=== PATIENT | male | born 1955 | race Caucasian/White ===

== ENCOUNTER 2017-08-16 06:02 | Inpatient (IN) | payer OTHER ==
[2017-08-16] MEDS: CEFAZOLIN 2 GM/50 ML (PMX) 50 ML IVPB (05:30)
[2017-08-16] MEDS ORDERED: ROCURONIUM 50 MG INJ ×2 (07:00→07:34)
[2017-08-16] MEDS ORDERED: MIDAZOLAM 1 MG/ML 2 ML INJ ×2 (07:34)
[2017-08-16] MEDS ORDERED: PROPOFOL 20 ML (07:34)
[2017-08-16] MEDS ORDERED: CEFAZOLIN 1 GM INJ (07:34)
[2017-08-16] MEDS ORDERED: ROPIVACAINE 0.5 % 30 ML VIAL (07:34)
[2017-08-16] MEDS ORDERED: PHENYLephrine (100 MCG/ML) 5ML SYG (07:55)
[2017-08-16] MEDS ORDERED: OXYCODONE/ACETAMINOPHEN (5/325) TAB PO ×2 (10:00)
[2017-08-16] MEDS ORDERED: DIPHENHYDRAMINE 50 MG INJ IV (10:00)
[2017-08-16] MEDS ORDERED: HYDROmorphONE (0.2 MG/ML) 10ML SYG IV ×2 (10:00)
[2017-08-16] MEDS ORDERED: EPHEDrine SULFATE 50 MG/5 ML SYG IV (10:00)
[2017-08-16] MEDS ORDERED: METOCLOPRAMIDE 10 MG INJ IV (10:00)
[2017-08-16] MEDS ORDERED: FENTAnyl 50 MCG/ML VIAL IV ×3 (10:00)
[2017-08-16] MEDS ORDERED: ONDANSETRON 4 MG INJ IV ×2 (10:00→17:00)
[2017-08-16] MEDS ORDERED: hydrALAzine 20 MG INJ IV (10:00)
[2017-08-16] MEDS ORDERED: MEPERIDINE 25 MG INJ IV (10:00)
[2017-08-16] MEDS ORDERED: LABETALOL HCL 20MG INJ IV (10:00)
[2017-08-16] MEDS ORDERED: METOCLOPRAMIDE 10 MG INJ (10:12)
[2017-08-16] MEDS ORDERED: ONDANSETRON 4 MG INJ (10:12)
[2017-08-16] MEDS ORDERED: DEXAMETHASONE 4 MG/ML 1 ML INJ (10:13)
[2017-08-16] MEDS ORDERED: SUGAMMADEX SODIUM 200 MG/2 ML VIAL IV (10:13)
[2017-08-16] MEDS ORDERED: KETOROLAC 30 MG INJ (10:13)
[2017-08-16] MEDS: POLYMYXIN/BACITRACIN 1L IRRIG (11:08)
[2017-08-16] MEDS: HYDROmorphONE (0.2 MG/ML) 10ML SYG IV (15:14)
[2017-08-16] MEDS: OXYCODONE/ACETAMINOPHEN (5/325) TAB PO ×2 (15:51→20:13)
[2017-08-16] MEDS: morphine 2 MG INJ IV ×2 (18:04→22:32)
[2017-08-16] MEDS: IBUPROFEN 600 MG TAB PO (19:04)
[2017-08-16] MEDS: FAMOTIDINE 20 MG TAB PO (20:13)
[2017-08-17] MEDS: OXYCODONE/ACETAMINOPHEN (5/325) TAB PO ×6 (00:20→22:58)
[2017-08-17] MEDS: morphine 2 MG INJ IV ×3 (02:37→15:18)
[2017-08-17 05:48] LABS: ADD MAN DIFF? NO
[2017-08-17 05:56] LABS: BASOPHILS % 0.1 % (0.0-2.0); EOSINOPHILS % 0.1 % (0.0-7.0); HEMATOCRIT 37.9 % (42.0-52.0); HEMOGLOBIN 12.7 g/dl (14.0-18.0); LYMPHOCYTES # 1.9 10^3/ul (0.8-2.9); LYMPHOCYTES % 12.7 % (15.0-51.0); MEAN CORPUSCULAR HEMOGLOBIN 29.4 pg (29.0-33.0); MEAN CORPUSCULAR HGB CONC 33.5 g/dl (32.0-37.0); MEAN CORPUSCULAR VOLUME 87.7 fl (82.0-101.0); MEAN PLATELET VOLUME 10.1 fl (7.4-10.4); MONOCYTE # 1.5 10^3/ul (0.3-0.9); MONOCYTES % 9.8 % (0.0-11.0); NEUTROPHIL # 11.7 10^3/ul (1.6-7.5); PLATELET COUNT 306 10^3/UL (140-415); RED BLOOD COUNT 4.32 10^6/ul (4.70-6.10); RED CELL DISTRIBUTION WIDTH 12.6 % (11.5-14.5)
[2017-08-17 05:56] LABS: WHITE BLOOD COUNT 15.2 10^3/ul (4.8-10.8)
[2017-08-17 06:23] LABS: ANION GAP 15 (8-16); BLOOD UREA NITROGEN 11 mg/dl (7-20); CALCIUM 9.2 mg/dl (8.4-10.2); CARBON DIOXIDE 23 mmol/L (21-31); CHLORIDE 107 mmol/L (97-110); CREATININE 0.67 mg/dl (0.61-1.24); GLUCOSE 132 mg/dl (70-220); POTASSIUM 3.8 mmol/L (3.5-5.1); SODIUM 141 mmol/L (135-144)
[2017-08-17] MEDS: FAMOTIDINE 20 MG TAB PO ×2 (08:28→20:35)
[2017-08-17] MEDS: ENOXAPARIN 30 MG/0.3 ML SYG SC (08:29)
[2017-08-17] MEDS ORDERED: HYDROCODONE/APAP (5/325) TAB PO (10:00)
[2017-08-17] MEDS: morphine LIQ (10 MG/5 ML) CUP PO (20:36)
[2017-08-18] MEDS: morphine LIQ (10 MG/5 ML) CUP PO ×2 (01:56→06:52)
[2017-08-18] MEDS: OXYCODONE/ACETAMINOPHEN (5/325) TAB PO ×4 (04:33→20:03)
[2017-08-18] MEDS: ENOXAPARIN 30 MG/0.3 ML SYG SC (08:35)
[2017-08-18] MEDS: FAMOTIDINE 20 MG TAB PO ×2 (08:35→20:03)
[2017-08-18 12:41] LABS: ALANINE AMINOTRANSFERASE 35 IU/L (13-69); ALBUMIN/GLOBULIN RATIO 1.37; ALKALINE PHOSPHATASE 70 IU/L (42-121); ANION GAP 12 (8-16); ASPARTATE AMINO TRANSFERASE 18 IU/L (15-46); BILIRUBIN,INDIRECT 0.1 mg/dl (0-1.1); BILIRUBIN,TOTAL 0.1 mg/dl (0.2-1.3); BLOOD UREA NITROGEN 11 mg/dl (7-20); CALCIUM 9.2 mg/dl (8.4-10.2); CARBON DIOXIDE 30 mmol/L (21-31); CHLORIDE 104 mmol/L (97-110); CREATININE 0.76 mg/dl (0.61-1.24); GLUCOSE 91 mg/dl (70-220); POTASSIUM 3.9 mmol/L (3.5-5.1); SODIUM 142 mmol/L (135-144); TOTAL PROTEIN 6.9 g/dl (6.1-8.1)
[2017-08-19] MEDS: OXYCODONE/ACETAMINOPHEN (5/325) TAB PO ×5 (02:25→22:02)
[2017-08-19 05:03] LABS: ADD MAN DIFF? NO
[2017-08-19 05:08] LABS: WHITE BLOOD COUNT 8.3 10^3/ul (4.8-10.8)
[2017-08-19 05:08] LABS: BASOPHILS % 0.5 % (0.0-2.0); EOSINOPHILS # 0.2 10^3/ul (0.0-0.5); EOSINOPHILS % 1.8 % (0.0-7.0); HEMATOCRIT 40.4 % (42.0-52.0); HEMOGLOBIN 13.3 g/dl (14.0-18.0); LYMPHOCYTES # 2.1 10^3/ul (0.8-2.9); LYMPHOCYTES % 25.6 % (15.0-51.0); MEAN CORPUSCULAR HEMOGLOBIN 29.2 pg (29.0-33.0); MEAN CORPUSCULAR HGB CONC 32.9 g/dl (32.0-37.0); MEAN CORPUSCULAR VOLUME 88.8 fl (82.0-101.0); MEAN PLATELET VOLUME 9.9 fl (7.4-10.4); MONOCYTE # 1.2 10^3/ul (0.3-0.9); MONOCYTES % 14.8 % (0.0-11.0); NEUTROPHIL # 4.7 10^3/ul (1.6-7.5); NEUTROPHILS % 56.5 % (39.0-77.0); PLATELET COUNT 310 10^3/UL (140-415); POSITIVE DIFF @See below; RED BLOOD COUNT 4.55 10^6/ul (4.70-6.10); RED CELL DISTRIBUTION WIDTH 13.3 % (11.5-14.5)
[2017-08-19 05:48] LABS: ANION GAP 15 (8-16); BLOOD UREA NITROGEN 10 mg/dl (7-20); CALCIUM 9.7 mg/dl (8.4-10.2); CARBON DIOXIDE 28 mmol/L (21-31); CHLORIDE 106 mmol/L (97-110); CREATININE 0.75 mg/dl (0.61-1.24); GLUCOSE 103 mg/dl (70-220); POTASSIUM 4.5 mmol/L (3.5-5.1); SODIUM 144 mmol/L (135-144)
[2017-08-19] MEDS: FAMOTIDINE 20 MG TAB PO ×2 (09:05→21:07)
[2017-08-19] MEDS: ENOXAPARIN 30 MG/0.3 ML SYG SC (09:07)
[2017-08-20] MEDS: OXYCODONE/ACETAMINOPHEN (5/325) TAB PO ×3 (04:58→17:04)
[2017-08-20 05:12] LABS: ADD MAN DIFF? NO
[2017-08-20 05:23] LABS: BASOPHILS % 0.6 % (0.0-2.0); EOSINOPHILS # 0.2 10^3/ul (0.0-0.5); EOSINOPHILS % 2.6 % (0.0-7.0); HEMATOCRIT 41.3 % (42.0-52.0); HEMOGLOBIN 13.6 g/dl (14.0-18.0); LYMPHOCYTES # 2.1 10^3/ul (0.8-2.9); LYMPHOCYTES % 34.1 % (15.0-51.0); MEAN CORPUSCULAR HEMOGLOBIN 29.1 pg (29.0-33.0); MEAN CORPUSCULAR HGB CONC 32.9 g/dl (32.0-37.0); MEAN CORPUSCULAR VOLUME 88.2 fl (82.0-101.0); MEAN PLATELET VOLUME 9.9 fl (7.4-10.4); MONOCYTE # 0.8 10^3/ul (0.3-0.9); MONOCYTES % 13.3 % (0.0-11.0); NEUTROPHILS % 48.8 % (39.0-77.0); PLATELET COUNT 342 10^3/UL (140-415); RED BLOOD COUNT 4.68 10^6/ul (4.70-6.10); RED CELL DISTRIBUTION WIDTH 13.1 % (11.5-14.5)
[2017-08-20 05:23] LABS: WHITE BLOOD COUNT 6.2 10^3/ul (4.8-10.8)
[2017-08-20 06:01] LABS: BLOOD UREA NITROGEN 14 mg/dl (7-20)
[2017-08-20 07:22] LABS: ANION GAP 15 (8-16); CALCIUM 9.8 mg/dl (8.4-10.2); CARBON DIOXIDE 27 mmol/L (21-31); CHLORIDE 106 mmol/L (97-110); CREATININE 0.73 mg/dl (0.61-1.24); GLUCOSE 105 mg/dl (70-220); SODIUM 144 mmol/L (135-144)
[2017-08-20] MEDS: FAMOTIDINE 20 MG TAB PO ×2 (08:48→22:57)
[2017-08-20] MEDS: ENOXAPARIN 30 MG/0.3 ML SYG SC (10:38)
[2017-08-20] MEDS: IOHEXOL 100 ML (12:32)
[2017-08-20] MEDS: SOD CHLORIDE 0.9% 100 ML (12:32)
[2017-08-21] MEDS: OXYCODONE/ACETAMINOPHEN (5/325) TAB PO ×4 (05:03→22:28)
[2017-08-21] MEDS: IBUPROFEN 600 MG TAB PO (07:46)
[2017-08-21] MEDS: FAMOTIDINE 20 MG TAB PO ×2 (08:25→20:40)
[2017-08-21] MEDS: ENOXAPARIN 30 MG/0.3 ML SYG SC (08:27)
[2017-08-21] MEDS ORDERED: POLYETHYLENE GLYCOL 17 GM PACKET PO (15:30)
[2017-08-21] MEDS: DOCUSATE SODIUM 100 MG CAP PO ×2 (15:47→20:40)
[2017-08-22] MEDS: OXYCODONE/ACETAMINOPHEN (5/325) TAB PO ×5 (03:48→21:59)
[2017-08-22 06:12] LABS: ANION GAP 16 (8-16); BLOOD UREA NITROGEN 23 mg/dl (7-20); CALCIUM 9.5 mg/dl (8.4-10.2); CARBON DIOXIDE 26 mmol/L (21-31); CHLORIDE 105 mmol/L (97-110); CREATININE 0.67 mg/dl (0.61-1.24); GLUCOSE 97 mg/dl (70-220); POTASSIUM 4.3 mmol/L (3.5-5.1); SODIUM 143 mmol/L (135-144)
[2017-08-22] MEDS: DOCUSATE SODIUM 100 MG CAP PO ×2 (08:51→20:14)
[2017-08-22] MEDS: FAMOTIDINE 20 MG TAB PO ×2 (08:51→20:14)
[2017-08-22] MEDS: ENOXAPARIN 30 MG/0.3 ML SYG SC (08:53)
[2017-08-22] MEDS: IBUPROFEN 600 MG TAB PO (20:17)
== END 2017-08-22 22:20 | DRG 469 ==
LOC: REC 06:02 → MS1 14:59
PROC: 0SRF0JZ Replacement of Right Ankle Joint with Synthetic Substitute, Open Approach (ICD-10-PCS; principal; 2017-08-16 07:29)
DX: M19.071 Primary osteoarthritis, right ankle and foot (principal); G89.18 Other acute postprocedural pain; G89.29 Other chronic pain; M54.2 Cervicalgia; H91.90 Unspecified hearing loss, unspecified ear; Z96.651 Presence of right artificial knee joint
CPT/HCPCS: 73610-RT; 80048; 80053; 85025; 97110; 97116; 97163; 97530

== ENCOUNTER 2017-08-22 17:47 | Inpatient (IN) | payer OTHER ==
[2017-08-22] MEDS ORDERED: morphine LIQ (10 MG/5 ML) CUP PO (23:00)
[2017-08-22] MEDS ORDERED: ONDANSETRON 4 MG INJ IV (23:30)
[2017-08-22] MEDS ORDERED: POLYETHYLENE GLYCOL 17 GM PACKET PO (23:30)
[2017-08-23] MEDS ORDERED: PENDING SANTYL ORDER FOR WOUND CARE XX (00:30)
[2017-08-23] MEDS: OXYCODONE/ACETAMINOPHEN (5/325) TAB PO ×4 (05:34→21:03)
[2017-08-23 07:02] LABS: ADD UMIC NO; UR ASCORBIC ACID NEGATIVE (NEGATIVE); UR BILIRUBIN (Dip) NEGATIVE (NEGATIVE); UR BLOOD (Dip) NEGATIVE (NEGATIVE); UR CLARITY CLEAR (CLEAR); UR COLOR YELLOW (YELLOW); UR GLUCOSE (Dip) NEGATIVE (NEGATIVE); UR KETONES (Dip) NEGATIVE (NEGATIVE); UR LEUKOCYTE ESTERASE (Dip) NEGATIVE Leu/ul (NEGATIVE); UR NITRITE (Dip) NEGATIVE (NEGATIVE); UR SPECIFIC GRAVITY (Dip) 1.021 (1.003-1.030); UR TOTAL PROTEIN (Dip) NEGATIVE (NEGATIVE); UR UROBILINOGEN (Dip) NEGATIVE (NEGATIVE)
[2017-08-23 08:38] LABS: ADD MAN DIFF? NO
[2017-08-23 08:55] LABS: WHITE BLOOD COUNT 5.8 10^3/ul (4.8-10.8)
[2017-08-23 08:55] LABS: BASOPHILS % 0.5 % (0.0-2.0); EOSINOPHILS # 0.1 10^3/ul (0.0-0.5); EOSINOPHILS % 2.1 % (0.0-7.0); HEMATOCRIT 42.9 % (42.0-52.0); HEMOGLOBIN 13.9 g/dl (14.0-18.0); LYMPHOCYTES # 1.9 10^3/ul (0.8-2.9); LYMPHOCYTES % 32.3 % (15.0-51.0); MEAN CORPUSCULAR HEMOGLOBIN 28.8 pg (29.0-33.0); MEAN CORPUSCULAR HGB CONC 32.4 g/dl (32.0-37.0); MEAN PLATELET VOLUME 9.9 fl (7.4-10.4); MONOCYTE # 0.7 10^3/ul (0.3-0.9); MONOCYTES % 12.7 % (0.0-11.0); NEUTROPHIL # 2.9 10^3/ul (1.6-7.5); PLATELET COUNT 357 10^3/UL (140-415); RED BLOOD COUNT 4.82 10^6/ul (4.70-6.10); RED CELL DISTRIBUTION WIDTH 13.1 % (11.5-14.5)
[2017-08-23 09:22] LABS: ALANINE AMINOTRANSFERASE 84 IU/L (13-69); ALBUMIN 4.3 g/dl (3.3-4.9); ALBUMIN/GLOBULIN RATIO 1.48; ALKALINE PHOSPHATASE 70 IU/L (42-121); ANION GAP 14 (8-16); ASPARTATE AMINO TRANSFERASE 47 IU/L (15-46); BILIRUBIN,INDIRECT 0.2 mg/dl (0-1.1); BILIRUBIN,TOTAL 0.2 mg/dl (0.2-1.3); BLOOD UREA NITROGEN 20 mg/dl (7-20); CARBON DIOXIDE 29 mmol/L (21-31); CHLORIDE 103 mmol/L (97-110); CREATININE 0.75 mg/dl (0.61-1.24); GLUCOSE 105 mg/dl (70-220); POTASSIUM 4.2 mmol/L (3.5-5.1); SODIUM 142 mmol/L (135-144); TOTAL PROTEIN 7.2 g/dl (6.1-8.1)
[2017-08-23] MEDS: DOCUSATE SODIUM 100 MG CAP PO ×2 (09:48→21:03)
[2017-08-23] MEDS: FAMOTIDINE 20 MG TAB PO ×2 (09:49→21:03)
[2017-08-23] MEDS: ENOXAPARIN 30 MG/0.3 ML SYG SC (09:50)
[2017-08-24] MEDS: IBUPROFEN 600 MG TAB PO ×2 (05:23→21:10)
[2017-08-24] MEDS: OXYCODONE/ACETAMINOPHEN (5/325) TAB PO ×4 (06:31→18:45)
[2017-08-24] MEDS: DOCUSATE SODIUM 100 MG CAP PO ×2 (08:27→21:08)
[2017-08-24] MEDS: FAMOTIDINE 20 MG TAB PO ×2 (08:27→21:08)
[2017-08-24] MEDS: ENOXAPARIN 30 MG/0.3 ML SYG SC (08:28)
[2017-08-25] MEDS: OXYCODONE/ACETAMINOPHEN (5/325) TAB PO ×3 (06:54→17:04)
[2017-08-25] MEDS: DOCUSATE SODIUM 100 MG CAP PO ×2 (09:35→21:00)
[2017-08-25] MEDS: FAMOTIDINE 20 MG TAB PO ×2 (09:35→21:00)
[2017-08-25] MEDS: ENOXAPARIN 30 MG/0.3 ML SYG SC (09:36)
[2017-08-25] MEDS: IBUPROFEN 600 MG TAB PO (21:00)
[2017-08-26] MEDS: IBUPROFEN 600 MG TAB PO (06:45)
[2017-08-26] MEDS: OXYCODONE/ACETAMINOPHEN (5/325) TAB PO ×3 (06:49→18:00)
[2017-08-26] MEDS: DOCUSATE SODIUM 100 MG CAP PO ×2 (09:19→21:00)
[2017-08-26] MEDS: FAMOTIDINE 20 MG TAB PO ×2 (09:19→21:00)
[2017-08-26] MEDS: ENOXAPARIN 30 MG/0.3 ML SYG SC (09:20)
[2017-08-27] MEDS: OXYCODONE/ACETAMINOPHEN (5/325) TAB PO ×4 (01:43→20:25)
[2017-08-27] MEDS: DOCUSATE SODIUM 100 MG CAP PO ×2 (09:00→20:25)
[2017-08-27] MEDS: FAMOTIDINE 20 MG TAB PO ×2 (09:00→20:25)
[2017-08-27] MEDS: ENOXAPARIN 30 MG/0.3 ML SYG SC (09:08)
[2017-08-28] MEDS: OXYCODONE/ACETAMINOPHEN (5/325) TAB PO ×4 (04:23→20:32)
[2017-08-28] MEDS: FAMOTIDINE 20 MG TAB PO ×2 (10:26→20:31)
[2017-08-28] MEDS: DOCUSATE SODIUM 100 MG CAP PO ×2 (10:26→20:31)
[2017-08-28] MEDS: ENOXAPARIN 30 MG/0.3 ML SYG SC (10:27)
[2017-08-29] MEDS: OXYCODONE/ACETAMINOPHEN (5/325) TAB PO ×3 (06:19→19:41)
[2017-08-29] MEDS: DOCUSATE SODIUM 100 MG CAP PO ×2 (09:45→21:00)
[2017-08-29] MEDS: FAMOTIDINE 20 MG TAB PO ×2 (09:45→21:00)
[2017-08-29] MEDS: ENOXAPARIN 30 MG/0.3 ML SYG SC (09:46)
[2017-08-30] MEDS: OXYCODONE/ACETAMINOPHEN (5/325) TAB PO ×3 (04:34→17:44)
[2017-08-30] MEDS: FAMOTIDINE 20 MG TAB PO ×2 (08:35→20:06)
[2017-08-30] MEDS: DOCUSATE SODIUM 100 MG CAP PO ×2 (08:35→20:06)
[2017-08-30] MEDS: ENOXAPARIN 30 MG/0.3 ML SYG SC (08:36)
[2017-08-31] MEDS: OXYCODONE/ACETAMINOPHEN (5/325) TAB PO ×2 (01:09→07:34)
[2017-08-31] MEDS: ENOXAPARIN 30 MG/0.3 ML SYG SC (09:00)
[2017-08-31] MEDS: DOCUSATE SODIUM 100 MG CAP PO (09:28)
[2017-08-31] MEDS: FAMOTIDINE 20 MG TAB PO (09:28)
== END 2017-08-31 11:45 | disposition home health service (06) | DRG 561 ==
LOC: VRC 17:47
PROC: F08Z1ZZ Dressing Techniques Treatment (ICD-10-PCS; principal; 2017-08-28)
PROC: F08Z0ZZ Bathing/Showering Techniques Treatment (ICD-10-PCS; 2017-08-28)
PROC: F08Z2ZZ Grooming/Personal Hygiene Treatment (ICD-10-PCS; 2017-08-28)
PROC: F07Z5ZZ Bed Mobility Treatment (ICD-10-PCS; 2017-08-28)
PROC: F07Z8ZZ Transfer Training Treatment (ICD-10-PCS; 2017-08-28)
PROC: F07Z9ZZ Gait Training/Functional Ambulation Treatment (ICD-10-PCS; 2017-08-28)
PROC: F07Z4ZZ Wheelchair Mobility Treatment (ICD-10-PCS; 2017-08-28)
DX: M84.471D Pathological fracture, right ankle, subsequent encounter for fracture with routine healing (principal); G89.29 Other chronic pain; M19.071 Primary osteoarthritis, right ankle and foot; M54.2 Cervicalgia; H91.90 Unspecified hearing loss, unspecified ear; M17.12 Unilateral primary osteoarthritis, left knee; M19.90 Unspecified osteoarthritis, unspecified site; Z96.661 Presence of right artificial ankle joint
CPT/HCPCS: 73600; 80053; 81003; 85025; 87081; 87086; 97110; 97116; 97150; 97162; 97166; 97530; 97535; 97542

== ENCOUNTER → 2017-10-09 | Outpatient (CLI) | payer OTHER | END | disposition home or self-care (01) | LOC: HKI 09:04 | DX: M17.12 Unilateral primary osteoarthritis, left knee (principal); Z96.651 Presence of right artificial knee joint | CPT/HCPCS: 73564; 73564-LT ==

== ENCOUNTER → 2018-01-30 | Outpatient (CLI) | payer OTHER | END | disposition home or self-care (01) | LOC: HKI 10:17 | DX: M17.12 Unilateral primary osteoarthritis, left knee (principal) | CPT/HCPCS: 20610 ==

== ENCOUNTER → 2018-05-14 | Outpatient (CLI) | payer OTHER | END | disposition home or self-care (01) | LOC: HKI 10:11 | DX: M17.12 Unilateral primary osteoarthritis, left knee (principal) | CPT/HCPCS: 73564; 73564-LT ==

== ENCOUNTER → 2018-05-24 | Outpatient (CLI) | payer OTHER | END | disposition home or self-care (01) | LOC: HKI 11:05 | DX: M17.12 Unilateral primary osteoarthritis, left knee (principal) | CPT/HCPCS: 20610 ==